=== PATIENT | male | born 1960 | race Caucasian/White ===

== ENCOUNTER 2022-10-22 14:21 | Outpatient (CLI) | payer BC, SELFPAY ==
--- NOTE | ~2022-10-22 | CT_ITS ---
EXAMINATION: CT LE LT wo con DATE: 10/22/2022 15:28 INDICATION: Left knee osteoarthritis. TECHNIQUE: Computed tomography (CT) of the left lower limb was performed without intravenous contrast . Automated exposure control and iterative reconstruction technique were employed. The dose-length pr oduct was 1883.85 mGy-cm. COMPARISON: Left knee radiographs 10/10/2022 FINDINGS: Left hip demonstrates normal bone alignment. No fracture. There is mild left hip osteoarthr itis. Osteitis pubis is noted. Left knee demonstrates severe osteoarthritis of medial compartment and moderate osteoarthritis of the lateral and patellofemoral compartments. There is a small knee joint effusion. IMPRESSION: 1. Severe left knee osteoarthritis. 2. Small left knee joint effusion. 3. Mild left hip osteoarthritis. Reviewed, dictated and finalized at location A.
--- NOTE | 2022-10-22 15:04 | ECG_ITS ---
Measurements Intervals [place] Rate: 78 P: 56 CA: 179 QRS: -1 QRSD: 121 T: 55 QT: 366 QTc: 417 Interpretive Statements SINUS RHYTHM VENTRICULAR PREMATURE COMPLEX POSSIBLE LEFT ATRIAL ENLARGEMENT INCOMPLETE RIGHT BUNDLE BRANCH BLOCK DELAYED PRECORDIAL R/S TRANSITION BASELINE ARTIFACT- III, AVL, AVF BORDERLINE ECG NO PREVIOUS ECG AVAILABLE FOR COMPARISON Electronically Signed On 10-22-2022 15:25:50 CDT by Rico Contreras D.O.
[2022-10-22 15:25] LABS: Hematocrit 39.8 % (42.0-52.0); Hemoglobin 13.7 g/dL (14.0-18.0)
[2022-10-22 15:35] LABS: Albumin Level 4.6 g/dL (3.5-5.1); Estimated Glomerular Filt Rate > 60; Glucose 90 mg/dL (65-110)
[2022-10-22 15:57] LABS: Hemoglobin A1C 5.6 % (<5.7)
[2022-10-22 16:47] LABS: Urine Cotinine NEGATIVE
== END 2022-10-22 14:22 | disposition home or self-care (01) ==
LOC: ANHIMG 14:23
PROVIDERS: PCP Internal Medicine; Visit Provider Orthopaedic Surgery
DX: M17.12 Unilateral primary osteoarthritis, left knee (principal); M25.462 Effusion, left knee; M16.12 Unilateral primary osteoarthritis, left hip; I45.10 Unspecified right bundle-branch block
CPT/HCPCS: 73700; 80307; 82040; 82565; 82947; 83036; 85014; 85018; 93005

== ENCOUNTER 2022-12-11 11:17 | Outpatient (CLI) | payer BC, SELFPAY ==
[2022-12-11 12:39] LABS: Basophils Percent Auto 0.7 % (0.2-1.2); Eosinophils Absolute Auto 0.3 K/mm3 (0-0.3); Eosinophils Percent Auto 4.9 % (0-4.4); Hematocrit 40.3 % (42.0-52.0); Hemoglobin 13.5 g/dL (14.0-18.0); Immature Granulocyte Absolute 0.03 K/mm3 (0.00-0.031); Immature Granulocyte Percent A 0.5 % (0-0.5); Lymphocytes Absolute Auto 1.63 K/mm3 (0.9-3.2); Lymphocytes Percent Auto 27.6 % (18.3-44.2); Mean Corpuscular HGB Conc 33.5 g/dl (32-36); Mean Corpuscular Hemoglobin 29.5 pg (26-34); Mean Platelet Volume 9.2 fl (7.4-10.4); Monocytes Absolute Auto 0.7 K/mm3 (0.1-0.6); Neutrophils Absolute Auto 3.3 K/mm3 (1.3-6.7); Neutrophils Percent Auto 55.3 % (45.5-73.1); Platelet Count Result 296 k/mm3 (150-375); Red Blood Count 4.58 M/mm3 (4.6-6.20); White Blood Count 5.9 K/mm3 (4.5-10.0)
[2022-12-11 12:44] LABS: Albumin Level 4.5 g/dL (3.5-5.1); Estimated Glomerular Filt Rate > 60; Glucose 95 mg/dL (65-110)
[2022-12-11 12:54] LABS: Urine Cotinine NEGATIVE
[2022-12-11 13:12] LABS: Hemoglobin A1C 5.8 % (<5.7)
== END 2022-12-11 11:18 | disposition home or self-care (01) ==
PROVIDERS: PCP Internal Medicine; Visit Provider Orthopaedic Surgery
DX: M17.12 Unilateral primary osteoarthritis, left knee (principal); Z01.818 Encounter for other preprocedural examination
CPT/HCPCS: 80307; 82040; 82565; 82947; 83036; 85025; 87081

== ENCOUNTER 2023-01-09 00:54 | Day surgery (SDC) | payer BC, SELFPAY ==
--- NOTE | 2022-12-11 11:12 | PC.NURSE ---
PRE-OP INSTRUCTIONS, PLEASE READ CAREFULLY Report to the Outpatient Waiting Room, entrance under the green pavilion located off [facility], at time _0600_ on date _01/09/23_. Planned Procedure Time: _0730_. PACK A SMALL OVERNIGHT BAG AND LEAVE IN THE CAR ALONG WITH YOUR WALKER Time changes happen often and if your time is changed the preop area will call you the afternoon before. - You and your visitor will be asked to self-screen and do not enter if you have any COVID symptoms. - A mask is optional within the hospital at this time. -VISITING HOURS 8AM-8PM Patients may have clear liquids (water, carbonated beverages, clear teas, apple juice) until 3 hours prior to surgery (0430 AM) with a maximum of 20 ounces. - No food from midnight until time of surgery Take the following medications with a SIP of water the morning of surgery: _ALPRAZOLAM & PAIN PILL IF NEEDED_ DO NOT STOP ANY OF YOUR OTHER PRESCRIPTION MEDICATIONS PRIOR TO SURGERY ?EXCEPT THE FOLLOWING Medications to discontinue per ANESTHESIA - _MULTIVITAMIN & SUPPLEMENTS 3 DAYS PRIOR TO SURGERY, Date to take last dose 01/05/23_ Please no make-up, nail solomon islander, hairspray, perfume, deodorant, or body powder the day of surgery. No jewelry (including any body piercings) or valuables the day of surgery, leave them at home. Please take a shower or bath the night before, or the morning of, surgery with an antibacterial soap. Wear comfortable, loose fitting clothing. - Jewelry must be removed prior to entering the operating room. Rings and piercings that are not removed may be cut off. - The hospital will not accept responsibility for valuables. - Please leave all valuables, including medications, at home the day of surgery. If you are going home after surgery, a licensed auto driver must drive you home. - NO public transportation without another adult if you receive anesthesia. - We recommend that an adult stay with you for 24 hours following discharge. - We also recommend that you do not drive, make important decision, drink alcoholic beverages, or take any drugs that were not prescribed by your health care provider for at least 24 hours after your discharge time. For Pediatric surgeries, we recommend two adults accompany the child home. Follow any additional instructions given to you by DR. SABILLON' OFFICE. TOTAL JOINT CLASS 7/19/23 @ 1000 AM, [facility] ENTRANCE 2 - LOWER LEVEL If you or anyone in your household have experienced Covid symptoms in the past week, please notify your surgeon or the nurse liaison at the phone number below for possible testing. Instructions given to _PATIENT & SPOUSE (HARDIK) _and asked if any additional questions and then verbalized understanding. Patient advised to call surgeon office or pre surgery nurse liaison [phone] if any additional questions.
[2022-12-11 11:53] VITALS: BP 138/88; PULSE 72; RESP 20; TEMP 37; O2SAT 98; BMI 29.9
[2023-01-09] VITALS (13 sets, daily range): BP systolic 111–146; BP diastolic 66–95; PULSE 81–97; RESP 10–24; TEMP 36–37.2; O2SAT 93–100
--- NOTE | ~2023-01-09 | XR_ITS ---
EXAMINATION: [id number] DATE: 01/09/2023 10:08 INDICATION: Postoperative evaluation following left total knee arthroplasty. TECHNIQUE: Anteroposterior and lateral views of the left knee were obtained. COMPARISON: None. FINDINGS: Left total knee arthroplasty with patellar resurfacing appears well seated and in near anatomic align ment. No fractures identified. Expected postoperative subcutaneous and intra-articular gas. IMPRESSION: 1. Left total knee arthroplasty, negative for postoperative purposes. Reviewed, dictated and finalized at location L.
[2023-01-09] MEDS: ACETAMINOPHEN 500 MG TABLET 1000 MG PO ×3 (06:48→17:17)
--- NOTE | 2023-01-09 06:59 | WPDANESEPPF ---
Anes - Initial Pre Proc Eval Procedure: Operation Date: 01/09/23 07:30 Proposed Procedures p Left Custom Total Knee Arthroplasty - Prince Ledbetter MD Date/Time: 01/09/23 06:59 Surgeon: Pirnce Ledbetter MD Pre Op Diagnosis: primary oa left knee Patient Data Age: 62 Gender: M Height: 1.73 m Weight: 88.8 kg Last Vital Signs Temp 37.0 C 12/11/22 11:53 Pulse 72 12/11/22 11:53 Resp 20 12/11/22 11:53 BP 138/88 12/11/22 11:53 Pulse Ox 98 12/11/22 11:53 O2 Del Method Room Air 12/11/22 11:53 Allergies Allergy/AdvReac Type Severity Reaction Status Date / Time Penicillins Allergy Unknown Unknown - Verified 01/09/23 06:25 A CHILD Home Medications Medication Instructions Recorded Confirmed Type alprazolam 0.25 mg tablet (Xanax) 0.25 mg PO DAILY PRN Anxiety 10/10/22 01/09/23 History Beet Root Extract 500 mg DAILY 12/11/22 01/09/23 History Elderberry 50 mg DAILY 12/11/22 01/09/23 History Sweet Potato 450 mg DAILY 12/11/22 01/09/23 History Vitamin C 800 mg DAILY 12/11/22 01/09/23 History apple cider vinegar 500 mg tablet 500 mg PO DAILY 12/11/22 01/09/23 History cholecalciferol (vitamin D3) 10 10 mcg PO DAILY 12/11/22 01/09/23 History mcg (400 unit) tablet cranberry 500 mg capsule 500 mg PO BID 12/11/22 01/09/23 History fenofibrate 160 mg tablet 160 mg PO DAILY 12/11/22 01/09/23 History garlic 1,000 mg capsule 1,000 mg PO DAILY 12/11/22 01/09/23 History hydrocodone 5 mg-acetaminophen 325 1 tablet PO Q6H PRN Pain 12/11/22 12/11/22 History mg tablet multivitamin 1 tablet PO DAILY 12/11/22 01/09/23 History omega 8-abu-yvu-fish oil 300 1 cap PO DAILY 12/11/22 01/09/23 History mg-1,000 mg capsule (Fish Oil) quetiapine 150 mg tablet 150 mg PO HS 12/11/22 01/09/23 History sildenafil 100 mg tablet 100 mg PRN PRN Sexual Activity 12/11/22 12/11/22 History simvastatin 20 mg tablet 20 mg PO DAILY 12/11/22 01/09/23 History Patient hx anesthesia problems: none Family hx anesthesia problems: none Results Review: All pre-operative results and documents have been reviewed as part of the pre-operative evaluation. PMFSH Past Medical History Medical History PTSD (post-traumatic stress disorder) Sleep apnea Surgical History Surgical History History of arthroscopy of left knee (~2008) History of lumbar surgery (~2016) Social History Social History Smoking packs per day: 1.5 Smoking cigarettes per day: 30.0 Years smoked: 14 Smoking pack-years: 21.00 Smoking status: Former smoker Tobacco type: cigarettes Second hand tobacco smoke exposure: No Smoking end date: 02/14/22 Additional smoking assessment comments: PT DENIES ALL FORMS OF TOBACCO USE Alcohol intake: current Drinks per week: 21 Alcohol use details: 3 DRINKS/NOC Substance use: current Substance use type: marijuana Other substance usage details: 1 HIT EVERY PM SLEEP/PAIN Last use: 12/10/22 Lack of Transportation: No Lack of Food: Never True Current Housing: I Have Housing Concerned About Future Housing: No Difficulty Paying Gas/Electric Bills: No Difficulty Paying for Meds: No Currently Unemployed: No Education: Associate Degree Difficulty w/ Childcare or Family Care: No Living arrangements: with family Spiritual care concerns: No Anes - Eval Final PreProcedure Day of Procedure 01/09/23 06:59 Patient weight: overweight Heart: regular rate and rhythm Lungs: decreased breath sounds Airway: Mallampati scale class II Neurological: alert and oriented Last oral intake: >/= 8 hours ASA classification: III Emergent: no Anesthetic plan: proceed Anesthesia type and monitoring: general LMA and standard monitoring Results Review: All pre-operative results and documents have been reviewed as part
--- NOTE | 2023-01-09 07:05 | WPDHPUPDATE1 ---
History and Physical Update Update Date/Time: 01/09/23 07:05 History and Physical has been reviewed, including an updated exam of the patient. Superficial shaving abrasion at the postero-lateral knee. No drainage or erthyema. There are NO other changes in the patient's condition. Risks, benefits, and alternatives have been discussed and questions answered. Patient agrees to proceed with procedure.
[2023-01-09] MEDS: LACTATED RINGERS 1,000 ML 30 ML IV CONT ×2 (07:06→10:03)
[2023-01-09] MEDS: TRANEXAMIC ACID 1,000MG/ISO100 1,000 MG/100 ML BAG 200 MG IVPB (07:07)
--- NOTE | 2023-01-09 07:08 | SUR.PREOP ---
[address] duncan 0615 about abrasion to posterior left upper calf from pt shaving 01/08/23,states to continue preparing for surgery. dr duncan here 0705 and visualized abrasion and to continue with surgery.
--- NOTE | 2023-01-09 07:35 | WPDANESPNB ---
Anes - Peripheral Nerve Block Date/Time: 01/09/23 07:35 I have discussed with the patient/family/POA the placement of a peripheral nerve block for post-operative pain management, including associated risks, benefits, complications, and side effects. Alternative methods of post-operative analgesia were detailed. Questions were solicited and answers provided to the satisfaction of the patient/family/POA. Time-Out: A pre-procedural Time-Out was completed immediately before starting the procedure and confirmed: Patient Identification, Site, Procedure, Patient Position and the Availability of Requisite Equipment. Clinical Indications: Acute post-operative pain management requested by the operative surgeon. Nerve Block Insertion Note Anes-nerve block: adductor canal left Patient position: supine Skin prep: chlorhexidine Needle: 22 gauge, stimulating, insulated echogenic needle. Needle length: 80 mm Technique: ultrasound Technique comment: mid2mg [id number] Injectate: bupivacaine 0.5% with epi 5 mcg/ml (30ml no epi) and dexamethasone (mg) (4) Observations: tolerated well Complications: none Procedure start time:: 723 Procedure end time:: 730
[2023-01-09] MEDS: ceFAZolin 2 GM/D5W 50 ML 2 GM/50 ML BAG IVPB ×2 (07:37→15:35)
--- NOTE | 2023-01-09 10:09 | W.PM.PROC2 ---
Procedure Note - Detailed Date of Procedure 01/09/23 Pre-op Diagnosis primary oa left knee Post-op Diagnosis Same Procedure Performed Total knee arthroplasty, left Surgeon Prince Ledbetter MD Manager Sign Angie Jorgensen PA-C Anesthesia General and Regional (Subsartorial block.) Findings Severe varus arthritis. Medial contracture with moderate medial release. Preoperative varus thrust. Slight needle release also performed. Optimal balance obtained. Standard resections according to the CT preoperative planning. Slight PCL release. Description of Procedure Preoperative antibiotics were given. The limb was prepped and draped in the usual sterile fashion with a well-padded tourniquet high on the thigh. The limb was exsanguinated and the tourniquet inflated to 300 mmHg during exposure and cementation. A longitudinal incision was created just medial to the patella. A trivector approach to the knee was performed. Arthrotomy was taken down through the joint capsule. No significant releases were initially taken. The femur was exposed and the F1 jig was applied. The coring tool was used to remove the cartilage for the F2 jig to sit flush with the bone. The jig was pinned and the distal cut carefully taken. Caliper measurements confirmed appropriate bony resections according to the preoperative templated plan. The F4 cutting jig for the femur was applied, at the standard rotation. The AP and anterior chamfer cuts were taken. The F5 jig was applied and the posterior chamfer cuts were taken. The tibia was prepared using the T1 jig, after removing cartilage for the jig contact points. Proper alignment was checked with the alignment ritika. The tibia was cut using the T1u guide. Gap balancing was performed. Gap measurements were taken and the knee was trialed. Excellent alignment and soft tissue balancing was confirmed. The posterior cruciate ligament was recessed along the proximal tibia. The patella was cut for resurfacing. Three lug holes were drilled. Meniscal remnants were removed. The trial components were assembled. Excellent range of motion and proper soft tissue balancing were confirmed throughout the full range of motion. Patellar tracking was excellent. The knee was copiously irrigated periodically throughout the procedure. The real implants were cemented into position. Excess cement was carefully removed. The wound was closed in layers with interrupted #1 Vicryl suture, #2 strata fix suture, 2-0 strata fix suture, 3-0 strata fix suture. Steri-Strips placed on the skin with the knee flexed. Sterile bulky dressing applied. The patient was brought to the recovery room in stable condition. There were no complications. Physician public health training assistant, Angie Jorgensen PA-C, required for surgery; including patient positioning, draping, tissue retraction, maintaining instrument position, cement removal, wound closure, and dressing placement. Implants Conform[employer] Imprint total knee arthroplasty. Cemented. Cruciate retaining. 6 mm insert. 35 mm patella. Estimated Blood Loss -50.0 Drains No Pathology None sent Complications No immediate complications Condition Stable Disposition PACU [facility] Billing Surgery - Charge Forward: Surgery Billing
--- NOTE | 2023-01-09 11:43 | ADMGEN ---
This patient, Faustino Scott, was admitted to 3 [facility] Surg Room 325-01. Patient/family oriented to hospital policies and general routines including ID bracelet, bed and alarms, visiting hours, pain management, procedures, bathroom and other care routines, personal items, smoking policy, room service/diet, and visiting hours. Information on how to activate the Rapid Response Team has been discussed. Patient/Family are encouraged to report perceived risks to care and to ask questions if they do not understand what they are told or what they should do.
[2023-01-09] MEDS: CYCLOBENZAPRINE HCL 10 MG TABLET PO (13:41)
[2023-01-09] MEDS: ASPIRIN 81 MG ENTERIC TABLET PO (17:17)
[2023-01-09] MEDS: oxyCODONE HCL (*CRX) 5 MG TAB IR PO (20:16)
[2023-01-09] MEDS: FAMOTIDINE 20 MG TABLET PO (21:19)
[2023-01-09] MEDS: QUEtiapine FUMARATE 25 MG TABLET 50 MG PO (21:20)
[2023-01-09] MEDS: MELOXICAM 7.5 MG TABLET PO (21:21)
[2023-01-09] MEDS: QUEtiapine FUMARATE 100 MG TABLET PO (21:22)
[2023-01-10] MEDS: ACETAMINOPHEN 500 MG TABLET 1000 MG PO ×2 (00:38→04:58)
[2023-01-10] MEDS: ceFAZolin 2 GM/D5W 50 ML 2 GM/50 ML BAG IVPB ×2 (00:39→09:32)
[2023-01-10 01:08] VITALS: BP 111/64; PULSE 62; RESP 16; TEMP 37.1; O2SAT 97
[2023-01-10] MEDS: oxyCODONE HCL (*CRX) 5 MG TAB IR PO (04:58)
[2023-01-10] MEDS: CYCLOBENZAPRINE HCL 10 MG TABLET PO (04:59)
[2023-01-10 05:08] VITALS: BP 111/75; PULSE 70; RESP 16; TEMP 36; O2SAT 94
[2023-01-10 06:24] LABS: Basophils Percent Auto 0.1 % (0.2-1.2); Eosinophils Absolute Auto 0.1 K/mm3 (0-0.3); Eosinophils Percent Auto 0.4 % (0-4.4); Hematocrit 36.4 % (42.0-52.0); Hemoglobin 12.2 g/dL (14.0-18.0); Immature Granulocyte Absolute 0.06 K/mm3 (0.00-0.031); Immature Granulocyte Percent A 0.5 % (0-0.5); Lymphocytes Absolute Auto 1.42 K/mm3 (0.9-3.2); Lymphocytes Percent Auto 10.7 % (18.3-44.2); Mean Corpuscular HGB Conc 33.5 g/dl (32-36); Mean Corpuscular Hemoglobin 29.3 pg (26-34); Mean Corpuscular Volume 87.5 fl (80-100); Mean Platelet Volume 9.3 fl (7.4-10.4); Monocytes Absolute Auto 1.4 K/mm3 (0.1-0.6); Monocytes Percent Auto 10.4 % (2.6-8.5); Neutrophils Absolute Auto 10.4 K/mm3 (1.3-6.7); Neutrophils Percent Auto 77.9 % (45.5-73.1); Platelet Count Result 280 k/mm3 (150-375); Red Blood Count 4.16 M/mm3 (4.6-6.20); Red Cell Distribution Width 12.9 % (11.5-14.5); White Blood Count 13.3 K/mm3 (4.5-10.0)
[2023-01-10 06:45] LABS: Anion Gap 7 mmol/L (8-16); Blood Urea Nitrogen 20 mg/dL (9-20); Calcium 8.7 mg/dL (8.4-10.2); Carbon Dioxide 23 mmol/L (22-30); Chloride 105 mmol/L (98-107); Estimated CRCL calculation 67 ml/min; Estimated Glomerular Filt Rate > 60; Glucose 114 mg/dL (65-110); Potassium 4.1 mmol/L (3.4-5.0); Sodium 135 mmol/L (137-145)
--- NOTE | 2023-01-10 07:57 | PM.DS ---
DS: Admitting Diagnosis Discharge Date 01/10/23 Admitting Diagnosis OA knee Left DS: Discharge Diagnosis Discharge Diagnosis (1) Status post left knee replacement: Code(s): Z96.652 - Presence of left artificial knee joint Status: Acute Assessment and Plan: Postop day 1: Left total knee arthroplasty. Patient tolerated procedure well. No complications. Pain manageable with pain medication. No numbness or tingling. We had a lengthy discussion regarding postoperative wound care, limitations, expectations, and exercises. Patient shows good understanding. He has had initial physical therapy and is tolerating it well. DVT prophylaxis: 81 mg baby aspirin QD for 14 days. Pain medication: Percocet. Meloxicam. Patient has followup appointment with Dr. Ledbetter in 3 weeks. DS: Summary Hospital Course Reason for hospitalization: Total knee arthroplasty Hospital Course: Patient tolerated procedure well. Has had initial PT/OT. Status at Discharge Functional status at discharge: uses cane/walker Overall status at discharge: patient is progressing back to baseline Time Spent with Patient Time attestation: Total time spent providing and/or coordinating discharge services: Exam Narrative: 62-year-old overweight male. Resting comfortably in chair. Alert and oriented x3. No acute distress. Wearing compression socks bilaterally. Dressing intact without drainage. Mild swelling. No ecchymosis. No erythema. No hematoma. Range of motion limited due to pain. Good quad function. Calf nontender. Neurologic status intact. No varicosities. Distal pulses palpable. DS: Data Data Completed and Pending Labs on day of discharge: Labs from last 24 hours 01/10/23 05:55 WBC 13.3 H RBC 4.16 L Hgb 12.2 L Hct 36.4 L MCV 87.5 MCH 29.3 MCHC 33.5 RDW 12.9 Plt Count 280 MPV 9.3 Immature Gran % (Auto) 0.5 Neut % (Auto) 77.9 H Lymph % (Auto) 10.7 L [place] % (Auto) 10.4 H Eos % (Auto) 0.4 Baso % (Auto) 0.1 L Lymph # (Auto) 1.42 [place] # (Auto) 1.4 H Eos # (Auto) 0.1 Baso # (Auto) 0.0 Abs Immat Gran (auto) 0.06 H Absolute Neuts (auto) 10.4 H Absolute Nucleated RBC 0.0 Nucleated RBC % 0.0 Sodium 135 L Potassium 4.1 Chloride 105 Carbon Dioxide 23 Anion Gap 7 L BUN 20 Creatinine 1.00 Estim Creat Clear Calc 67 Estimated GFR > 60 Glucose 114 H Calcium 8.7 Discharge Plan Discharge Patient Disposition: Home, Self-Care Discharge Instructions: See green instruction sheets Stand Alone Forms: General Discharge Instructions Follow-up/Referrals: Angie Jorgensen PA [Physician Accreditation Manager] - Discharge Medications: New meloxicam 15 mg tablet 15 mg PO DAILY Qty: 30 0RF Rx Instructions: Cut in half. Take 1/2 in morning and 1/2 at night. Take with food. Stop if stomach upset. aspirin 81 mg tablet,delayed release (DR/EC) 81 mg PO DAILY 14 Days Qty: 14 0RF oxycodone-acetaminophen 5-325 mg tablet 1 - 2 tablet PO Q4-6H MDD 6 PRN (Reason: pain) Qty: 30 0RF prednisone 5 mg tablet 5 mg PO DAILY 21 Days Qty: 21 0RF Continued alprazolam [Xanax] 0.25 mg tablet 0.25 mg PO DAILY PRN (Reason: Anxiety) quetiapine 150 mg tablet 150 mg PO HS fenofibrate 160 mg tablet 160 mg PO DAILY simvastatin 20 mg tablet 20 mg PO DAILY multivitamin Tablet 1 tablet PO DAILY omega 5-vbc-yxt-fish oil [Fish Oil] 300-1,000 mg capsule 1 cap PO DAILY garlic 1,000 mg capsule 1,000 mg PO DAILY cholecalciferol (vitamin D3) 10 mcg (400 unit) tablet 10 mcg PO DAILY cranberry 500 mg capsule 500 mg PO BID Rx Instructions: administer with meals apple cider vinegar 500 mg tablet 500 mg PO DAILY hydrocodone-acetaminophen 5-325 mg Tablet 1 tablet PO Q6H PRN (Reason: Pain) Patient Comments: STATES HARDLY EVER TAKES IT sildenafil 100 mg tablet 100 mg PRN PRN (
[2023-01-10] MEDS: FAMOTIDINE 20 MG TABLET PO (09:32)
[2023-01-10] MEDS: predniSONE 5 MG TABLET PO (09:32)
[2023-01-10] MEDS: SENNA/DOCUSATE SODIUM TABLET 2 TAB PO (09:32)
[2023-01-10] MEDS: FENOFIBRATE 160 MG TABLET PO (09:32)
[2023-01-10] MEDS: MELOXICAM 7.5 MG TABLET PO (09:32)
[2023-01-10] MEDS: polyethylene glycoL 3350 17 GM POWD.PACK PO (09:33)
[2023-01-10] MEDS: ASPIRIN 81 MG ENTERIC TABLET PO (09:33)
[2023-01-10] MEDS: SIMVASTATIN 20 MG TABLET PO (09:33)
[2023-01-10 10:10] VITALS: BP 112/76; PULSE 72; RESP 16; TEMP 36.6; O2SAT 99
--- NOTE | 2023-01-10 10:32 | P.PNAN_ITS ---
Anes - Prog Note Post-Op Date/Time: 01/10/23 10:32 Cardiovascular status: normal Respiratory status: normal Airway patency: baseline Mental status: baseline Post-Op hydration status: normal Vital Signs: Last Vital Signs Temp 36.0 C L 01/10/23 05:08 Pulse 70 01/10/23 05:08 Resp 16 01/10/23 05:08 BP 111/75 01/10/23 05:08 Pulse Ox 94 01/10/23 05:08 O2 Del Method Room Air 01/09/23 22:00 O2 Flow Rate 2 01/09/23 12:43 Pain Score (VAS): 0 I/O: Intake & Output 01/09/23 01/10/23 01/10/23 23:59 07:59 15:59 Intake Total 730 700 Output Total 250 Balance 480 700 Laboratory Tests 01/10/23 05:55 01/10/23 05:55 01/10/23 05:55 WBC 13.3 H RBC 4.16 L Hgb 12.2 L Hct 36.4 L MCV 87.5 MCH 29.3 MCHC 33.5 RDW 12.9 Plt Count 280 MPV 9.3 Immature Gran % (Auto) 0.5 Neut % (Auto) 77.9 H Lymph % (Auto) 10.7 L [place] % (Auto) 10.4 H Eos % (Auto) 0.4 Baso % (Auto) 0.1 L Lymph # (Auto) 1.42 [place] # (Auto) 1.4 H Eos # (Auto) 0.1 Baso # (Auto) 0.0 Abs Immat Gran (auto) 0.06 H Absolute Neuts (auto) 10.4 H Absolute Nucleated RBC 0.0 Nucleated RBC % 0.0 Sodium 135 L Potassium 4.1 Chloride 105 Carbon Dioxide 23 Anion Gap 7 L BUN 20 Creatinine 1.00 Estim Creat Clear Calc 67 Estimated GFR > 60 Glucose 114 H Calcium 8.7 Post-procedural complaints: none Patient Feedback: Patient satisfied with anesthetic care.
== END 2023-01-10 10:50 | disposition home or self-care (01) ==
LOC: ANHSURGERY 10:14 → ANH3MEDSUR 11:26
PROVIDERS: Physician Assistant Surgical; PCP Internal Medicine; Visit Provider Orthopaedic Surgery
PROC: (CPT 27447; principal; 2023-01-09 07:30)
DX: M17.12 Unilateral primary osteoarthritis, left knee (principal); G89.18 Other acute postprocedural pain; G47.30 Sleep apnea, unspecified; F43.10 Post-traumatic stress disorder, unspecified; Z87.891 Personal history of nicotine dependence; F12.90 Cannabis use, unspecified, uncomplicated
CPT/HCPCS: 27447; 64447; 36415; 73560; 80048; 85025; 86850; 86900; 86901; 97110; 97116; 97161; 97165; 97530; 97535; A9270; C1713; C1776; J0171; J0690; J1100; J1170; J1885; J2250; J2270; J2405; J2704; J2795; J3010; J7120; J7512